=== PATIENT | male | born 1995 | race Hispanic/Latino ===

== ENCOUNTER 2018-11-09 16:33 | Emergency (ER) | payer OTHER ==
[2018-11-09 18:29] VITALS: RESP 16; O2SAT 99
--- NOTE | 2018-11-09 18:51 | ED PDOC ---
HPI: Chest Pain Time Seen by Provider: 11/09/18 18:27 Chief Complaint (Nursing): Chest Pain Chief Complaint (Provider): chest pain History Per: Patient History/Exam Limitations: no limitations Onset/Duration Of Symptoms: Days (7) Current Symptoms Are (Timing): Still Present Severity: Mild Quality: Dull Modifying Factors: None Exacerbating Factors: None Additional Complaint(s): 23yo male c/o chest pain described as dull, ongoing frequently for one week. Worsens w inspiration, associated w feeling of anxiety, denies exertional component, SOB, sweating, palpitations, dizziness orthopnea, edema, LE pain or syncope. Past Medical History Vital Signs: Last Vital Signs Temp 98.5 F 11/09/18 16:33 Pulse 89 11/09/18 16:33 Resp 16 11/09/18 16:33 BP 155/99 H 11/09/18 16:33 Pulse Ox 99 11/09/18 16:33 - Medical History Other PMH: "fatty liver and vit D deficiency" - Surgical History Surgical History: No Surg Hx - Family History Family History: States: Unknown Family Hx - Social History Current smoker - smoking cessation education provided: No Alcohol: Social Drugs: Denies - Home Medications Home Medications: Ambulatory Orders Medication Instructions Recorded ALPRAZolam [Xanax] 0.25 mg PO BID PRN #4 tab 11/09/18 - Allergies Allergies/Adverse Reactions: Allergies Allergy/AdvReac Type Severity Reaction Status Date / Time No Known Allergies Allergy Verified 11/09/18 18:28 - Laboratory Results Result Diagrams: 11/09/18 19:09 11/09/18 19:09 - ECG ECG: Positive for: Interpreted By Mo ECG Rhythm: Positive for: Normal QRS, Normal ST Segment, Sinus Rhythm Rate: 91 O2 Sat by Pulse Oximetry: 99 Pulse Ox Interpretation: Normal - Radiology X-Ray: Interpreted by Mo X-Ray Interpretation: No Acute Disease, Other (neg cardiomegaly neg pneumothorax) Medical Decision Making Medical Decision Making: workup was initiated for chest discomfort in patient with HEART score 1 and no known risk factors, also with component of anxiety. DDimer neg trop and BNP normal bloodwork otherwise unremarkable Re-eval in ED improved without medication Given lack of current pain, lack of abnormal vitals, unremarkable EKG, unremarkable bloodwork, stable for outpatient workup, avoid exertion until seen/cleared by PMD/ cardiology Low dose xanax Rx for anxiolysis relief for rescue medication, explained potentially addictive, use lowest amount for symptom relief and may cause drowsiness. Disposition - Clinical Impression Clinical Impression: Chest pain, Anxiety - Patient ED Disposition Is Patient to be Admitted: No Counseled Patient/Family Regarding: Studies Performed - Disposition Disposition: Routine/Home Disposition Time: 21:05 Condition: STABLE Additional Instructions: Return to ER for any new or worsening symptoms. Followup with P MD/clinic/cardiology in next 2-3 days. Avoid heavy exertion until seen/cleared by PMD/cardiology. Take xanax 0.25mg for any anxiety every 8 hours, may cause drowsiness, do not combine with alcohol. Prescriptions: ALPRAZolam [Xanax] 0.25 mg PO BID PRN #4 tab PRN Reason: Anxiety Instructions: Chest Pain Forms: [facility] (Maltese), [facility] School/Work Excuse
[2018-11-09 19:21] LABS: BASO % 0.5 % (0.0-2.0); EOS % 0.4 % (0.0-4.0); HEMOGLOBIN 15.5 g/dL (12.0-18.0); LYMPH # 1.6 K/uL (1.0-4.3); LYMPH % 19.2 % (20.0-40.0); MEAN CELL VOLUME 93.4 fl (80.0-94.0); MEAN CORPUSCULAR HEMOGLOBIN 32.2 pg (27.0-31.0); MEAN CORPUSCULAR HGB CONC 34.5 g/dL (33.0-37.0); MEAN PLATELET VOLUME 8.3 fl (7.2-11.7); MONO # 0.5 K/uL (0.0-0.8); MONO % 5.9 % (0.0-10.0); NEUT # 6.4 K/uL (1.8-7.0); NRBC % 0.2 % (0.0-0.0); RBC 4.82 Mil/uL (4.40-5.90); RED CELL DISTRIBUTION WIDTH 12.3 % (11.5-14.5); WHITE BLOOD COUNT 8.6 K/uL (4.8-10.8)
[2018-11-09 19:49] LABS: ALB/GLOB RATIO 1.4 (1.0-2.1); ALBUMIN 5.2 g/dL (3.5-5.0); ALT/SGPT 44 U/L (21-72); AST/SGOT 44 U/L (17-59); BLOOD UREA NITROGEN 20 mg/dl (9-20); CALCIUM 10.4 mg/dL (8.4-10.2); GFR NON-AFRICAN AMERICAN > 60
[2018-11-09 19:58] LABS: PROTHROMBIN TIME 10.8 Seconds (9.8-13.1)
[2018-11-09 20:02] LABS: B-TYPE NATRIURETIC PEPTIDE 36.4 pg/ml (0-450); PARTIAL THROMBOPLASTIN TIME 30.7 Seconds (25.6-37.1)
[2018-11-09 20:31] LABS: D DIMER < 200 ng/mlDDU (0-230)
[2018-11-09 22:11] VITALS: BP 128/76; TEMP 98.7
--- NOTE | 2018-11-10 11:17 | RAD ---
Date of service: 11/09/2018 HISTORY: Chest pain. COMPARISON: No prior. TECHNIQUE: Chest PA and lateral FINDINGS: LUNGS: No active pulmonary disease. PLEURA: No significant pleural effusion identified. No pneumothorax apparent. CARDIOVASCULAR: No aortic atherosclerotic calcification present. Normal cardiac size. No pulmonary vascular congestion. OSSEOUS STRUCTURES: No significant abnormalities. VISUALIZED UPPER ABDOMEN: Normal. OTHER FINDINGS: None. IMPRESSION: No active disease.
[2018-11-10 17:26] VITALS: PULSE 91
== END 2018-11-09 21:34 | disposition home or self-care (01) ==
LOC: H.ER 16:33
DX: R07.89 Other chest pain (principal); F41.9 Anxiety disorder, unspecified